=== PATIENT | male | born 1985 | race Caucasian/White ===

== ENCOUNTER 2016-11-27 14:00 | Emergency (ER) | payer SELFPAY ==
[2016-11-27] MEDS ORDERED: Ondansetron ODT 4 MG TAB ONE (14:26)
[2016-11-27] MEDS ORDERED: Promethazine HCl 25 MG/ML VIAL ONE (14:41)
[2016-11-27] MEDS ORDERED: Ketorolac Tromethamine 60 MG/2 ML VIAL ONE (14:41)
[2016-11-27] MEDS ORDERED: Amoxicillin/Potassium Clav 875 MG TAB ONE (14:41)
[2016-11-27] MEDS ORDERED: Lidocaine Viscous Sol 2% 15 ml UD Cup ONE (14:47)
== END 2016-11-27 15:15 | disposition home or self-care (01) ==
LOC: MADERS 14:00
DX: K02.9 Dental caries, unspecified (principal); I10 Essential (primary) hypertension; F17.210 Nicotine dependence, cigarettes, uncomplicated; Z79.899 Other long term (current) drug therapy
CPT/HCPCS: 96372; J1885; J2270; J2550; Q0162